=== PATIENT | female | born 1950 | race Two or more races ===

== ENCOUNTER 2017-09-13 07:18 | Outpatient (CLI) | payer OTHER ==
[~2017-09-13 07:18] MED LIST: ACIDOPHILUS1 EAC3 PO; ASA-EC81 MG; ATACAND HCT 31 UDTAB; CALTRATE 600 W-1 TAB; MECLIZINE HCL25 MG PO; ZANTAC150 MG PO
== END 2017-09-13 07:27 | disposition home or self-care (01) ==
LOC: LAB 07:18
DX: I10 Essential (primary) hypertension (principal); E03.8 Other specified hypothyroidism; E78.4 Other hyperlipidemia; Z12.11 Encounter for screening for malignant neoplasm of colon; N30.00 Acute cystitis without hematuria; E83.51 Hypocalcemia; R82.79 Other abnormal findings on microbiological examination of urine

== ENCOUNTER 2017-09-13 08:19 | Outpatient (CLI) | payer OTHER | END 2017-09-13 08:33 | disposition home or self-care (01) | LOC: MAMO-SONO 08:19 | DX: Z12.31 Encounter for screening mammogram for malignant neoplasm of breast (principal); Z87.898 Personal history of other specified conditions; N60.11 Diffuse cystic mastopathy of right breast; N60.12 Diffuse cystic mastopathy of left breast ==

== ENCOUNTER 2017-09-16 09:17 | Outpatient (CLI) | payer OTHER | END 2017-09-16 10:08 | disposition home or self-care (01) | LOC: LAB 09:17 | DX: I10 Essential (primary) hypertension (principal); E03.8 Other specified hypothyroidism; E78.4 Other hyperlipidemia; Z12.11 Encounter for screening for malignant neoplasm of colon; N30.00 Acute cystitis without hematuria; E83.51 Hypocalcemia ==

== ENCOUNTER 2019-05-27 07:59 | Outpatient (CLI) | payer OTHER | END 2019-05-27 08:01 | disposition home or self-care (01) | LOC: MAMO-SONO 07:59 | DX: Z12.31 Encounter for screening mammogram for malignant neoplasm of breast (principal); Z87.898 Personal history of other specified conditions; E03.8 Other specified hypothyroidism; E55.9 Vitamin D deficiency, unspecified; E66.8 Other obesity; M54.5 Low back pain; M89.8X8 Other specified disorders of bone, other site; I11.9 Hypertensive heart disease without heart failure; Z12.11 Encounter for screening for malignant neoplasm of colon; Z13.820 Encounter for screening for osteoporosis; Z68.32 Body mass index [BMI] 32.0-32.9, adult ==

== ENCOUNTER 2019-05-28 07:55 | Outpatient (CLI) | payer OTHER | END 2019-05-28 08:30 | disposition home or self-care (01) | LOC: NUCLEAR 07:55 | DX: I82.492 Acute embolism and thrombosis of other specified deep vein of left lower extremity (principal) ==

== ENCOUNTER 2019-06-01 07:26 | Outpatient (CLI) | payer OTHER | END 2019-06-01 07:30 | disposition home or self-care (01) | LOC: NUCLEAR 07:26 | DX: M89.8X0 Other specified disorders of bone, multiple sites (principal); M85.89 Other specified disorders of bone density and structure, multiple sites; M54.5 Low back pain; E03.8 Other specified hypothyroidism; E55.9 Vitamin D deficiency, unspecified; E66.8 Other obesity; I11.9 Hypertensive heart disease without heart failure ==

== ENCOUNTER 2019-06-03 08:16 | Outpatient (CLI) | payer OTHER | END 2019-06-03 08:23 | disposition home or self-care (01) | LOC: MRI 08:16 | DX: S83.242A Other tear of medial meniscus, current injury, left knee, initial encounter (principal); M89.8X8 Other specified disorders of bone, other site; E55.9 Vitamin D deficiency, unspecified; E66.8 Other obesity; M54.5 Low back pain; E03.8 Other specified hypothyroidism; I11.9 Hypertensive heart disease without heart failure; Z12.11 Encounter for screening for malignant neoplasm of colon; Z12.31 Encounter for screening mammogram for malignant neoplasm of breast; Z13.820 Encounter for screening for osteoporosis; Z68.32 Body mass index [BMI] 32.0-32.9, adult | CPT/HCPCS: 73721 ==

== ENCOUNTER 2021-01-18 07:06 | Outpatient (CLI) | payer OTHER | END 2021-01-18 07:17 | disposition home or self-care (01) | LOC: RAD 07:06 | PROVIDERS: ATTEND Physical Medicine & Rehabilitation | DX: M17.0 Bilateral primary osteoarthritis of knee (principal) ==

== ENCOUNTER 2021-06-28 13:44 | Outpatient (CLI) | payer OTHER | END 2021-06-28 13:46 | disposition home or self-care (01) | LOC: NUCLEAR 13:44 | PROVIDERS: ATTEND Internal Medicine | DX: M89.9 Disorder of bone, unspecified (principal) ==

== ENCOUNTER 2021-07-03 07:55 | Outpatient (CLI) | payer OTHER | END 2021-07-03 08:08 | disposition home or self-care (01) | LOC: MAMO-SONO 07:55 | PROVIDERS: ATTEND Internal Medicine | DX: Z12.31 Encounter for screening mammogram for malignant neoplasm of breast (principal); E03.9 Hypothyroidism, unspecified; E55.9 Vitamin D deficiency, unspecified; E66.8 Other obesity; M54.50 Low back pain, unspecified; M89.9 Disorder of bone, unspecified; I11.9 Hypertensive heart disease without heart failure; Z12.11 Encounter for screening for malignant neoplasm of colon; Z13.820 Encounter for screening for osteoporosis; M23.92 Unspecified internal derangement of left knee; S83.242A Other tear of medial meniscus, current injury, left knee, initial encounter; K21.9 Gastro-esophageal reflux disease without esophagitis ==

== ENCOUNTER → 2021-08-25 | Outpatient (CLI) | payer OTHER | END | disposition home or self-care (01) | LOC: MRI 07:03 | PROVIDERS: ATTEND Orthopaedic Surgery | DX: S83.201A Bucket-handle tear of unspecified meniscus, current injury, left knee, initial encounter (principal); S83.200A Bucket-handle tear of unspecified meniscus, current injury, right knee, initial encounter | CPT/HCPCS: 73721 ==

== ENCOUNTER 2023-05-06 07:28 | Outpatient (CLI) | payer OTHER | END 2023-05-06 07:38 | disposition home or self-care (01) | LOC: MAMO-SONO 07:28 | PROVIDERS: ATTEND Internal Medicine | DX: E03.9 Hypothyroidism, unspecified (principal); E55.9 Vitamin D deficiency, unspecified; E66.8 Other obesity; M54.50 Low back pain, unspecified; M89.9 Disorder of bone, unspecified; I11.9 Hypertensive heart disease without heart failure; Z12.11 Encounter for screening for malignant neoplasm of colon; Z12.31 Encounter for screening mammogram for malignant neoplasm of breast; Z13.820 Encounter for screening for osteoporosis; M23.92 Unspecified internal derangement of left knee; S83.242A Other tear of medial meniscus, current injury, left knee, initial encounter; K21.9 Gastro-esophageal reflux disease without esophagitis ==

== ENCOUNTER 2024-07-29 07:32 | Outpatient (CLI) | payer OTHER | END 2024-07-29 07:37 | disposition home or self-care (01) | LOC: MRI 07:32 | PROVIDERS: ATTEND Physical Medicine & Rehabilitation | DX: M17.11 Unilateral primary osteoarthritis, right knee (principal); M23.221 Derangement of posterior horn of medial meniscus due to old tear or injury, right knee; M17.0 Bilateral primary osteoarthritis of knee | CPT/HCPCS: 73721 ==

== ENCOUNTER 2024-08-12 09:38 | Outpatient (CLI) | payer OTHER | END 2024-08-12 09:46 | disposition home or self-care (01) | LOC: MAMO-SONO 09:38 | PROVIDERS: ATTEND Internal Medicine | DX: N64.0 Fissure and fistula of nipple (principal); Z12.31 Encounter for screening mammogram for malignant neoplasm of breast; I11.9 Hypertensive heart disease without heart failure; Z13.820 Encounter for screening for osteoporosis; K21.9 Gastro-esophageal reflux disease without esophagitis; E03.9 Hypothyroidism, unspecified; E55.9 Vitamin D deficiency, unspecified; M89.9 Disorder of bone, unspecified; R10.13 Epigastric pain; D12.6 Benign neoplasm of colon, unspecified; Z68.32 Body mass index [BMI] 32.0-32.9, adult ==

== ENCOUNTER 2024-08-12 11:46 | Outpatient (CLI) | payer OTHER | END 2024-08-12 11:48 | disposition home or self-care (01) | LOC: NUCLEAR 11:46 | PROVIDERS: ATTEND Internal Medicine | DX: Z13.820 Encounter for screening for osteoporosis (principal); M81.0 Age-related osteoporosis without current pathological fracture ==

== ENCOUNTER 2025-01-05 21:51 | Emergency (ER) | payer OTHER ==
[~2025-01-05] VITALS: Ht 149.9 cm; Wt 76.2 kg
[2025-01-05] MEDS ORDERED: FAMOTIDINE/PF 20 MG/2 ML VIAL IV PUSH STA (23:45)
[2025-01-05] MEDS ORDERED: SUCRALFATE 1 G TABLET PO STA (23:45)
[2025-01-05] MEDS ORDERED: MAG HYDROX/ALUMINUM HYD/SIMETH 30 ML BLIST.PACK PO STA (23:46)
[2025-01-06] MEDS ORDERED: MAG HYDROX/ALUMINUM HYD/SIMETH 30 ML BLIST.PACK PO ONE (00:47)
[2025-01-06] MEDS ORDERED: FAMOTIDINE/PF 20 MG/2 ML VIAL ONE (00:48)
[2025-01-06] MEDS ORDERED: PEPCID40 MG PO (01:54)
[2025-01-06] MEDS ORDERED: PROTONIX40 MG PO (01:54)
== END 2025-01-06 02:28 ==
LOC: ER 21:51
DX: K21.9 Gastro-esophageal reflux disease without esophagitis (principal); R11.0 Nausea; I10 Essential (primary) hypertension; Z88.6 Allergy status to analgesic agent
CPT/HCPCS: 93005; 96365; 99282; J3490

== ENCOUNTER 2025-01-30 03:23 | Emergency (ER) | payer OTHER ==
[~2025-01-30] VITALS: Ht 149.9 cm; Wt 77.6 kg
[~2025-01-30 03:23] MED LIST changes: +PEPCID40 MG PO; +PROTONIX40 MG PO
[2025-01-30] MEDS ORDERED: FAMOTIDINE/PF 20 MG/2 ML VIAL IV PUSH STA (06:38)
[2025-01-30] MEDS ORDERED: ONDANSETRON HCL 2 MG/ML VIAL IV STA (06:38)
[2025-01-30] MEDS ORDERED: SUCRALFATE 1 G TABLET PO STA (06:39)
[2025-01-30] MEDS ORDERED: ONDANSETRON HCL 2 MG/ML VIAL ONE (07:10)
[2025-01-30] MEDS ORDERED: FAMOTIDINE/PF 20 MG/2 ML VIAL ONE (07:11)
[2025-01-30] MEDS ORDERED: CARAFATE1 GM PO (07:58)
== END 2025-01-30 08:39 ==
LOC: ER 03:23
DX: K21.9 Gastro-esophageal reflux disease without esophagitis (principal); I10 Essential (primary) hypertension; Z88.6 Allergy status to analgesic agent

== ENCOUNTER 2025-02-15 10:49 | Outpatient (CLI) | payer OTHER ==
[~2025-02-15 10:49] MED LIST changes: +CARAFATE1 GM PO
== END 2025-02-15 10:51 | disposition home or self-care (01) ==
LOC: RAD 10:49
DX: M19.011 Primary osteoarthritis, right shoulder (principal)